=== PATIENT | female | born 1955 | race Two or more races ===

== ENCOUNTER → 2017-02-28 | Outpatient (CLI) | payer OTHER ==
[~2017-02-28] MED LIST: AZIT500T5 PO
--- NOTE | 2017-02-28 17:42 | RADRPT ---
PROCEDURE: XR pelvis and left hip CLINICAL INDICATION: Pain TECHNIQUE: AP pelvis as well as a AP and frog lateral views of the bilateral hips were performed. COMPARISON: None. FINDINGS: There is normal mineralization and alignment. No acute fracture or osseous lesion is identified. There is mild narrowing of the right hip joint space. There are moderate degenerative changes of the left hip joint including joint space narrowing and sm all osteophytes. The soft tissues are unremarkable. IMPRESSION: Degenerative changes of bilateral hip joints which are moderate on the left and mild on the right. RPTAT: EE Physician Celestina Date Time Electronically viewed and signed by Physician Celestina on 02/28/2017 14:51 /
== END | disposition home or self-care (01) ==
LOC: HKI 11:03
PROVIDERS: ATTEND Orthopaedic Surgery
DX: M25.552 Pain in left hip (principal); M16.12 Unilateral primary osteoarthritis, left hip
CPT/HCPCS: 73502; G0463

== ENCOUNTER 2017-07-13 06:01 | Inpatient (IN) | payer OTHER ==
[2017-07-12 12:47] VITALS: BMI 36.6
[2017-07-13] VITALS (19 sets, daily range): BP systolic 90–134; BP diastolic 54–93; PULSE 67–84; RESP 11–22; Ht 149.9 cm; Wt 81.9 kg
[~2017-07-13] VITALS: Ht 149.9 cm; Wt 81.9 kg
[~2017-07-13 06:01] MED LIST changes: +CEFAZOLIN 2 GM/50 ML (PMX) 50 ML IVPB SCH
[2017-07-13] MEDS ORDERED: CEFAZOLIN 2 GM/50 ML (PMX) 50 ML IVPB SCH (06:30)
[2017-07-13] MEDS ORDERED: MAXZ25 PO (06:56)
[2017-07-13] MEDS ORDERED: AMLO-145 PO (06:56)
[2017-07-13] MEDS ORDERED: CEFAZOLIN 1 GM INJ ONE (07:00)
--- NOTE | 2017-07-13 07:22 | HPN ---
Date/Time of Note Date/Time of Note DATE: 07/13/17 TIME: 07:22 Interval H&P Admission Note Pt. seen H&P reviewed: No system changes SANDRA GUTHRIE PA-C Jul 13, 2017 07:22
[2017-07-13] MEDS ORDERED: BACITRACIN 50000 UNITS INJ ONE (07:54)
[2017-07-13] MEDS ORDERED: TRANEXAMIC ACID 1,000 MG in DEXTROSE 5% 100 ML IV SCH (08:00)
[2017-07-13] MEDS ORDERED: POLYMYXIN B 500000 UNIT INJ ONE (08:02)
[2017-07-13] MEDS ORDERED: MIDAZOLAM 1 MG/ML 2 ML INJ ONE (08:40)
[2017-07-13] MEDS ORDERED: PROPOFOL 20 ML ONE (08:40)
[2017-07-13] MEDS ORDERED: LIDOCAINE 2% (SDV) 5 ML INJ ONE (08:40)
[2017-07-13] MEDS ORDERED: FENTAnyl 50 MCG/ML VIAL ONE (08:44)
[2017-07-13] MEDS ORDERED: PHENYLephrine 10 MG INJ ONE (08:56)
[2017-07-13] MEDS ORDERED: PHENYLephrine (100 MCG/ML) 5ML SYG ONE ×2 (08:57→09:59)
[2017-07-13] MEDS ORDERED: FAMOTIDINE 20 MG INJ ONE (09:22)
[2017-07-13] MEDS ORDERED: ONDANSETRON 4 MG INJ ONE (09:22)
[2017-07-13] MEDS: HIP PAIN COCKTAIL (CEFUROXIME) INJ SCH ×14 (09:54→14:24)
--- NOTE | 2017-07-13 11:27 | SIPON ---
Date/Time of Note Date/Time of Note DATE: 07/13/17 TIME: 11:26 Operative Report Preoperative Diagnosis Left Hip Osteoarthritis Postoperative Diagnosis Same Operation/Procedure Performed Left Total Hip Arthroplasty Surgeon MD Yandy under water assistant Elliott Castaneda Second assist: SANDRA GUTHRIE PA-C Anesthesia: spinal Estimated blood loss: 250 - 300 ml's Transfusion Required none Specimen Bone Grafts/Implants Depuy Size 12 stem, 32 STD head/neck, 50mm cup, 25mm screw Complications none DANICA VELAZQUEZ MD Jul 13, 2017 11:27
--- NOTE | 2017-07-13 11:47 | RADRPT ---
PROCEDURE: Intraoperative fluoroscopic examination, LT HIP REPLACEMENT CLINICAL INDICATION: LT HIP REPLACEMENT TECHNIQUE: Multiple fluoroscopic views of the left hip were obtained intraoperatively COMPARISON: 02/28/2017 FINDINGS: 6 fluoroscopic views demonstrate placement of a left hip arthroplasty. A total of 0.5 minutes of flu oroscopic time was utilized. IMPRESSION: Fluoroscopic guidance for left hip arthroplasty. RPTAT: DD .Earl Cordero MD, MD Date Time Electronically viewed and signed by .Earl Cordero MD, on 07/13/2017 11:46 .T/
--- NOTE | 2017-07-13 11:50 | PDOCDIS ---
Discharge Instructions DIAGNOSIS Discharge Diagnosis Status post left total hip arthroplasty via anterior route. CONDITION Patient Condition: Good HOME CARE INSTRUCTIONS: Diet Instructions: Regular ACTIVITY: Activity Restrictions: Slowly Increase Activity Rest between Activity Avoid heavy lifting No Sexual Activity Do not Drive Do not operate Machinery Do not operate Power Tool Avoid Heavy Housework Keep Limb Elevated (May use cold therapy over the surgical area.) Weight Bearing (Weight-bear as tolerated with front wheeled walker.) Bathing Restrictions: Shower (Keep surgical region clean and dry.) FOLLOW UP/APPOINTMENTS Follow-up Plan Follow-up at postoperative appointment provided to you at your preoperative visit. SANDRA GUTHRIE PA-C Jul 13, 2017 11:50
[2017-07-13] MEDS ORDERED: ONDANSETRON 4 MG INJ IV PRN (12:00)
[2017-07-13] MEDS ORDERED: DIPHENHYDRAMINE 50 MG INJ IM PRN (12:00)
[2017-07-13] MEDS ORDERED: DIPHENHYDRAMINE 50 MG INJ IV PRN (12:00)
[2017-07-13] MEDS ORDERED: ASPIRIN (EC) 325 MG TAB PO ONE (12:00)
[2017-07-13] MEDS ORDERED: BETHANECHOL 25 MG TAB PO PRN (12:00)
[2017-07-13] MEDS ORDERED: NA PHOSPHATE/BIPHOS 133 ML ENEMA PR PRN (12:00)
[2017-07-13] MEDS ORDERED: PROCHLORPERAZINE 10 MG INJ IV PRN (12:00)
[2017-07-13] MEDS ORDERED: LABETALOL HCL 20MG INJ IV PRN (12:00)
[2017-07-13] MEDS ORDERED: DEXTROSE 50% 50 ML SYRINGE IV PRN ×2 (12:00)
[2017-07-13] MEDS ORDERED: INSULIN ASPART [NOVOLOG] 3 ML PEN SC ONE (12:00)
[2017-07-13] MEDS ORDERED: MEPERIDINE 25 MG INJ IV PRN (12:00)
[2017-07-13] MEDS ORDERED: oxyCODONE 5 MG TAB PO PRN (12:00)
[2017-07-13] MEDS ORDERED: NALOXONE (0.4 MG/ML) INJ IV PRN (12:00)
[2017-07-13] MEDS ORDERED: BISACODYL 10 MG SUPP PR PRN (12:00)
[2017-07-13] MEDS ORDERED: NACL 0.9% 3 ML SYG IV SCH (12:00)
[2017-07-13] MEDS ORDERED: GLUCOSE GEL 15 GRAM TUBE BUCCAL PRN (12:00)
[2017-07-13] MEDS ORDERED: KETOROLAC 15 MG INJ IV PRN (12:00)
[2017-07-13] MEDS ORDERED: GLUCAGON 1 MG INJ IM PRN (12:00)
[2017-07-13] MEDS ORDERED: DOCUSATE SODIUM 100 MG CAP PO ONE (12:00)
[2017-07-13] MEDS ORDERED: ZOLPIDEM 5 MG TAB PO PRN (12:00)
[2017-07-13] MEDS ORDERED: SENNA/DOCUSATE NA (8.6MG/50MG) TAB PO PRN (12:00)
[2017-07-13] MEDS ORDERED: MAGNESIUM HYDROXIDE 30ML CUP PO PRN (12:00)
[2017-07-13] MEDS ORDERED: FENTAnyl 50 MCG/ML VIAL IV PRN (12:00)
[2017-07-13] MEDS ORDERED: GLUCOSE GEL 15 GRAM TUBE PO PRN ×2 (12:00)
[2017-07-13] MEDS ORDERED: hydrALAzine 20 MG INJ IV PRN (12:00)
[2017-07-13] MEDS ORDERED: HYDROmorphONE (0.2 MG/ML) 10ML SYG IV ONE (12:01)
[2017-07-13] MEDS: HYDROmorphONE (0.2 MG/ML) 10ML SYG IV PRN ×2 (12:16→12:30)
[2017-07-13] MEDS: ONDANSETRON 4 MG INJ IV SCH ×2 (12:31→18:00)
[2017-07-13] MEDS: CEFAZOLIN 1 GM/50 ML (PMX) 50 ML IVPB SCH ×2 (12:32→20:35)
--- NOTE | 2017-07-13 12:50 | RADRPT ---
PROCEDURE: Left hip x-ray CLINICAL INDICATION: Postoperative evaluation TECHNIQUE: Single AP portable left hip COMPARISON: 07/13/2017 and 02/28/2017 ACR images of the hips FINDINGS: The patient is status post left total hip replacement with intact hardware and gross anatomic alignm ent. No evidence for fractures or dislocations are present. Subcutaneous emphysematous changes are n oted in the soft tissues of the left hip compatible with postoperative changes. IMPRESSION: 1. Status post left total hip replacement with intact hardware. 2. Subcutaneous emphysematous changes in the left hip compatible with postoperative changes RPTAT: HDC .Nelda Fischer MD, MD Date Time Electronically viewed and signed by .Nelda Fischer MD, on 07/13/2017 12:50 .C/
--- NOTE | 2017-07-13 14:37 | CONS ---
Date/Time of Note Date/Time of Note DATE: 07/13/17 TIME: 14:32 Assessment/Plan Assessment/Plan Chief Complaint/Hosp Course Assessment and plan 1. Left hip osteoarthritis. Patient is status post left total hip arthroplasty. Continue postop care and analgesics. Physical therapy per surgeon. 2. Essential hypertension. Will start antihypertensives and adjust needed. Disposition and plan: Continue with analgesics. Physical therapy per surgeon. We will follow-up on a.m. labs with CHD, A1c, TSH. Discussed plan of care with Dr. Melo Consultation process time is greater than 30 minutes Problems: Consultation Date/Type/Reason Admit Date/Time Jul 13, 2017 at 06:01 Hx of Present Illness This is a 61-year-old female with past medical history of hypertension, arthritis, was brought to [facility] for elective surgery for left hip replacement. Patient had reportedly been having worsening left hip pain and difficulty with ambulation. As such she did come to [facility] and did received left hip arthroplasty. She did tolerate procedure well. Vital signs remained stable at present. She reports good pain control with analgesics at present. Family remains at bedside. We will evaluate her for the aformentiond issues. 12 point review of systems obtained and entirely negative except that mentioned in the history of present illness Past Medical History Medical/surgical history 1. Hypertension 2. Arthritis 3. Tonsillectomy 4. Appendectomy 5. 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, nl mental status, nl speech Results Results 24 hrs Laboratory Tests Test 07/13/17 06:50 07/13/17 12:13 Bedside Glucose 135 116 Medications Medications Current Medications Ropivacaine 60 ml/ Morphine Sulfate 4 mg/Clonidine 100 mcg/ Epinephrine 0.3 mg/ Ketorolac Tromethamine 30 mg/Cefuroxime Sodium 750 mg/ Sodium Chloride 50 ml INTRA-OP INJ Last administered on 07/13/17 09:54; Admin Dose 40 ML; Start 07/13/17 at 07:00; Stop 07/13/17 at 23:00 Cefazolin Sodium/ Dextrose 50 ml @ 100 mls/hr OC IVPB ; Start 07/13/17 at 06:30 ; Stop 07/13/17 at 23:00 Tranexamic Acid 1000 mg/Dextrose 110 ml @ 220 mls/hr NOW IV ; Start 07/13/17 at 08:00; Stop 07/14/17 at 23:00 Sodium Chloride (NS) 1,000 ml @ 80 mls/hr [id number] IV ; Start 07/13/17 at 11:50 Oxycodone HCl (Roxicodone) 20 mg Q3H PRN PO PAIN LEVEL 8-10; Start 07/13/17 at 12:00 Oxycodone HCl (Roxicodone) 10 mg Q3H PRN PO PAIN LEVEL 4-7; Start 07/13/17 at 12:00 Oxycodone HCl (Roxicodone) 5 mg Q3H PRN PO PAIN LEVEL 1-3; Start 07/13/17 at 12 :00 Zolpidem Tartrate (Ambien) 5 mg HS PRN PO INSOMNIA; Start 07/13/17 at 12:00 Ondansetron HCl 4 mg 4 mg Q6H IV Last administered on 07/13/17 12:31; Admin Dose 4 MG; Start 07/13/17 at 12:00; Stop 07/14/17 at 06:01 Cefazolin Sodium (Ancef 1 Gm/50 ml (Pmx)) 50 ml @ 100 mls/hr Q8H IVPB Last administered on 07/13/17 12:32; Admin Dose 100 MLS/HR; Start 07/13/17 at 12:00 ; Stop 07/14/17 at 04:29 Aspirin (Ecotrin) 325 mg BID PO ; Start 07/14/17 at 09:00 Celecoxib (Celebrex) 100 mg BID PO ; Start 07/14/17 at 09:00 Pantoprazole (Protonix Tab) 40 mg DAILY@06 PO ; Start 07/14/17 at 06:00 Docusate Sodium/ Ferrous Fumarate (Diane-Sequels) 1 tab BID PO ; Start 07/14/17 at 09:00 Docusate Sodium (Colace) 200 mg BID PO ; Start 07/14/17 at 09:00; Stop 07/16/17 at 21:01 Simethicone (Mylicon) 80 mg TID PRN PO DISTENSION/GAS/BLOATING; Start 07/13/17 at 12:00 Senna/Docusate Sodium (Senokot-S) 2 tab BID PRN PO CONSTIPATION; Start at 12:00 Magnesium Hydroxide (Milk Of Mag) 30 ml HS PRN PO CONSTIPATION; Start 07/13/17 at 12:00 Bisacodyl (Dulcolax Supp) 10 mg DAILY PRN [place] CONSTIPATION; Start 07/13/17 at 12 :00 Sodium Biphosphate/ Sodium Phosphate (Fleet Enema) 133 ml DAILY PRN [place] CONSTIPATION; Start 07/13/17 at 12:00 Diphenhydramine HCl (Benadryl) 25 mg Q4H PRN IM ITCHING OR RASH; Start at 12:00 Ketorolac Tromethamine (Toradol) 15 mg Q4 PRN IV PAIN; Start 07/13/17 at 12:00 ; Stop 07/17/17 at 11:59 Naloxone HCl (Narcan) 0.2 mg Q2M PRN IV DECREASED REPIRATORY RATE; Start at 12:00 Miscellaneous Information 1 ea NOTE XX ; Start 07/13/17 at 12:00; Stop 07/13/17 at 17:00 Glucose (Glutose) 15 gm Q15M PRN PO DECREASED GLUCOSE; Start 07/13/17 at 12:00 ; Stop 07/13/17 at 17:00 Glucose (Glutose) 22.5 gm Q15M PRN PO DECREASED GLUCOSE; Start 07/13/17 at 12: 00; Stop 07/13/17 at 17:00 Dextrose (D50w Syringe) 25 ml Q15M PRN IV DECREASED GLUCOSE; Start 07/13/17 at 12:00; Stop 07/13/17 at 17:00 Dextrose (D50w Syringe) 50 ml Q15M PRN IV DECREASED GLUCOSE; Start 07/13/17 at 12:00; Stop 07/13/17 at 17:00 Glucagon (Glucagen) 1 mg Q15M PRN IM DECREASED GLUCOSE; Start 07/13/17 at 12:00 ; Stop 07/13/17 at 17:00 Glucose (Glutose) 15 gm Q15M PRN BUCCAL DECREASED GLUCOSE; Start 07/13/17 at 12 :00; Stop 07/13/17 at 17:00 Amlodipine Besylate (Norvasc) 5 mg DAILY PO ; Start 07/14/17 at 09:00 SCHUYLER RODRIGUEZ Jul 13, 2017 14:37
[2017-07-13] MEDS: SOD CHLORIDE 0.9% 1,000 ML IV SCH (14:38)
[2017-07-13] MEDS: oxyCODONE 5 MG TAB PO PRN ×2 (14:39→22:54)
[2017-07-14 00:20] VITALS: BP 118/72; RESP 20
[2017-07-14] MEDS: SOD CHLORIDE 0.9% 1,000 ML IV SCH ×4 (00:20→21:08)
[2017-07-14] MEDS: oxyCODONE 5 MG TAB PO PRN ×3 (00:25→12:45)
[2017-07-14] MEDS: CEFAZOLIN 1 GM/50 ML (PMX) 50 ML IVPB SCH (03:54)
[2017-07-14 04:45] VITALS: BP 105/55; PULSE 91; RESP 18
[2017-07-14] MEDS: ONDANSETRON 4 MG INJ IV SCH ×2 (05:06)
[2017-07-14] MEDS: PANTOPRAZOLE (EC) 40 MG TAB PO SCH (05:07)
[2017-07-14 05:16] LABS: BASOPHILS % 0.3 % (0.0-2.0); EOSINOPHILS % 0.2 % (0.0-7.0); HEMATOCRIT 29.9 % (37.0-47.0); HEMOGLOBIN 10.1 g/dl (12.0-16.0); LYMPHOCYTES # 2.5 10^3/ul (0.8-2.9); LYMPHOCYTES % 23.4 % (15.0-51.0); MEAN CORPUSCULAR HEMOGLOBIN 29.4 pg (29.0-33.0); MEAN CORPUSCULAR HGB CONC 33.8 g/dl (32.0-37.0); MEAN CORPUSCULAR VOLUME 87.2 fl (82.0-101.0); MEAN PLATELET VOLUME 10.2 fl (7.4-10.4); MONOCYTE # 1.3 10^3/ul (0.3-0.9); MONOCYTES % 12.7 % (0.0-11.0); NEUTROPHIL # 6.6 10^3/ul (1.6-7.5); PLATELET COUNT 188 10^3/UL (140-415); RED BLOOD COUNT 3.43 10^6/ul (4.20-5.40); RED CELL DISTRIBUTION WIDTH 12.9 % (11.5-14.5); WHITE BLOOD COUNT 10.5 10^3/ul (4.8-10.8)
[2017-07-14 05:33] LABS: CALCIUM 8.3 mg/dl (8.4-10.2); CREATININE 0.68 mg/dl (0.44-1.00); POTASSIUM 3.4 mmol/L (3.5-5.1)
[2017-07-14 05:46] LABS: CHOL/HDL RATIO 2.9 RATIO
[2017-07-14 06:32] LABS: T3 UPTAKE 38.8 % (23.5-40.5)
[2017-07-14 07:01] LABS: ADD UMIC YES; UR ASCORBIC ACID NEGATIVE (NEGATIVE); UR BACTERIA FEW /HPF (NONE SEEN); UR BILIRUBIN (Dip) NEGATIVE (NEGATIVE); UR BLOOD (Dip) 1+ mg/dL (NEGATIVE); UR CLARITY CLEAR (CLEAR); UR COLOR YELLOW (YELLOW); UR GLUCOSE (Dip) NEGATIVE (NEGATIVE); UR KETONES (Dip) NEGATIVE (NEGATIVE); UR LEUKOCYTE ESTERASE (Dip) TRACE Leu/ul (NEGATIVE); UR MUCUS FEW /HPF (NONE SEEN); UR NITRITE (Dip) NEGATIVE (NEGATIVE); UR RBC 7 /HPF (0-5); UR TOTAL PROTEIN (Dip) NEGATIVE (NEGATIVE); UR UROBILINOGEN (Dip) NEGATIVE (NEGATIVE)
[2017-07-14 08:03] VITALS: BP 112/63; RESP 20
--- NOTE | 2017-07-14 08:24 | PN ---
Date/Time of Note Date/Time of Note DATE: 07/14/17 TIME: 08:23 Assessment/Plan VTE Prophylaxis VTE Prophylaxis Intervention: ambulation, SCD's, other (Aspirin 325 mg) Lines/Catheters IV Catheter Type (from Nrsg): Peripheral IV Coombs in Place (from Nrsg): Yes Assessment/Plan Assessment/Plan -Pain Meds as needed -ASA for DVT Prophylaxis x 6 weeks outpatient discussed. -Continue monitoring as outpatient on discharge -Follow-up at scheduled postop outpatient appointment or sooner if there is any issue. -Hip precautions discussed -Patient Stable -Discharge to Home with home health Subjective 24 Hr Interval Summary 61-year-old female postop day 1 status post left total hip arthroplasty via anterior route. Patient experienced moderate to severe pain overnight. Currently experiencing moderate pain. Denies any chest pain/tightness, shortness of breath or calf pain. Patient did have physical therapy but only able to stand and walk to the sink and back. Currently lying in bed comfortable. Exam/Review of Systems Vital Signs Vitals Vital Signs Date Time Temp Pulse Resp B/P Pulse Ox O2 Delivery O2 Flow Rate FiO2 07/14/17 08:03 98.1 88 20 112/63 97 07/14/17 04:45 Nasal Cannula 07/13/17 20:05 2.0 Intake and Output 07/13/17 07/13/17 07/14/17 15:00 23:00 07:00 Intake Total 2450 ml 570 ml 1230 ml Output Total 200 ml 300 ml 850 ml Balance 2250 ml 270 ml 380 ml Exam Free Text/Dictation -No complications with dressing intact. -Thigh soft -5/5 Quadriceps, Tibialis Anterior, EHL Gastrocnemius/Soleus and Peroneals -Normal Sensation -Palpable DP/PT, Capillary Refill <2 secs -No Distal Edema -Negative Gilbert Sign/No calf pain -Toes Freely Movable Constitutional: alert, oriented, well developed Results Result Diagram: 07/14/17 0438 07/14/17 0438 SANDRA GUTHRIE PA-C Jul 14, 2017 08:24
[2017-07-14] MEDS: DOCUSATE SODIUM 100 MG CAP PO SCH ×2 (08:46→20:35)
[2017-07-14] MEDS: AMLODIPINE 5 MG TAB PO SCH (08:47)
[2017-07-14] MEDS: ASPIRIN (EC) 325 MG TAB PO SCH ×2 (08:47→20:35)
[2017-07-14] MEDS: FERROUS FUMARATE (SR) TAB PO SCH ×2 (08:47→20:35)
[2017-07-14] MEDS: CELECOXIB 200 MG CAP PO SCH ×2 (08:47→20:35)
[2017-07-14] MEDS ORDERED: OMEG-135 PO (10:59)
--- NOTE | 2017-07-14 10:59 | PN ---
Date/Time of Note Date/Time of Note DATE: 07/14/17 TIME: 10:57 Assessment/Plan VTE Prophylaxis VTE Prophylaxis Intervention: other (asa) Lines/Catheters IV [facility]from [facility] Peripheral IV Urinary Cath still in place: Yes Assessment/Plan Chief Complaint/Hosp Course Assessment and plan 1. Left hip osteoarthritis. Patient is status post left total hip arthroplasty. Continue postop care and analgesics. continue PT. 2. Essential hypertension. Will start antihypertensives and adjust needed. Disposition and plan: Continue with analgesics. appears improving. continue PT. d/c planning. fish oil added for low HDL Discussed plan of care with Dr. Melo Consultation process time is greater than 30 minutes Problems: Subjective 24 Hr Interval Summary Free Text/Dictation with some left hip discomfort, but better Exam/Review of Systems Vital Signs Vitals Vital Signs Date Time Temp Pulse Resp B/P Pulse Ox O2 Delivery O2 Flow Rate FiO2 07/14/17 08:03 98.1 88 20 112/63 97 07/14/17 04:45 Nasal Cannula 07/13/17 20:05 2.0 Intake and Output 07/13/17 07/13/17 07/14/17 15:00 23:00 07:00 Intake Total 2450 ml 570 ml 1230 ml Output Total 200 ml 300 ml 850 ml Balance 2250 ml 270 ml 380 ml Exam Constitutional: alert, oriented Psych: nl mood/affect Head: normocephalic Neck: non-tender, supple Respiratory: clear to auscultation, normal air movement Cardiovascular: regular rate and rhythm Gastrointestinal: non-tender, soft Musculoskeletal: dressing left hip, cdi 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, nl mental status, nl speech Results Result Diagram: 07/14/17 0438 07/14/17 0438 Results 24 hrs Laboratory Tests Test 07/13/17 12:13 07/13/17 15:17 07/14/17 04:38 07/14/17 05:00 Bedside Glucose 116 Hemoglobin A1c 6.3 H White Blood Count 10.5 # Red Blood Count 3.43 #L Hemoglobin 10.1 #L Hematocrit 29.9 #L Mean Corpuscular Volume 87.2 Mean Corpuscular Hemoglobin 29.4 Mean Corpuscular Hemoglobin Concent 33.8 Red Cell Distribution Width 12.9 Platelet Count 188 Mean Platelet Volume 10.2 # Neutrophils % 63.0 Lymphocytes % 23.4 Monocytes % 12.7 H Eosinophils % 0.2 Basophils % 0.3 Nucleated Red Blood Cells % 0.0 Neutrophils # 6.6 Lymphocytes # 2.5 Monocytes # 1.3 H Eosinophils # 0.0 Basophils # 0.0 Nucleated Red Blood Cells # 0.0 Sodium Level 136 Potassium Level 3.4 L Chloride Level 100 Carbon Dioxide Level 30 Anion Gap 9 Blood Urea Nitrogen 15 Creatinine 0.68 Glucose Level 140 Calcium Level 8.3 L Triglycerides Level 77 Cholesterol Level 97 L LDL Cholesterol, Calculated 49 HDL Cholesterol 33 L Cholesterol/HDL Ratio 2.9 Free Thyroxine Index 3.38 Thyroxine (T4) 8.7 Triiodothyronine (T3) Uptake 38.8 Urine Color YELLOW Urine Clarity CLEAR Urine pH 5.0 Urine Specific [place] 1.020 Urine Ketones NEGATIVE Urine Nitrite NEGATIVE Urine Bilirubin NEGATIVE Urine Urobilinogen NEGATIVE Urine Leukocyte Esterase TRACE A Urine Microscopic RBC 7 H Urine Microscopic WBC 19 H Urine Bacteria FEW A Urine Mucus FEW A Urine Hemoglobin 1+ H Urine Glucose NEGATIVE Urine Total Protein NEGATIVE Medications Medications Current Medications Sodium Chloride (NS) 1,000 ml @ 80 mls/hr [id number] IV Last administered on 07/14 03:55; Admin Dose 80 MLS/HR; Start 07/13/17 at 11:50 Oxycodone HCl (Roxicodone) 20 mg Q3H PRN PO PAIN LEVEL 8-10 Last administered on 07/14/17 07:59; Admin Dose 20 MG; Start 07/13/17 at 12:00 Oxycodone HCl (Roxicodone) 10 mg Q3H PRN PO PAIN LEVEL 4-7 Last administered on 07/14/17 00:25; Admin Dose 10 MG; Start 07/13/17 at 12:00 Oxycodone HCl (Roxicodone) 5 mg Q3H PRN PO PAIN LEVEL 1-3; Start 07/13/17 at 12 :00 Zolpidem Tartrate (Ambien) 5 mg HS PRN PO INSOMNIA; Start 07/13/17 at 12:00 Aspirin (Ecotrin) 325 mg BID PO Last administered on 07/14/17 08:47; Admin Dose 325 MG; Start 07/14/17 at 09:00 Celecoxib (Celebrex) 100 mg BID PO Last administered on 07/14/17 08:47; Admin Dose 100 MG; Start 07/14/17 at 09:00 Pantoprazole (Protonix Tab) 40 mg DAILY@06 PO Last administered on 07/14/17 05 :07; Admin Dose 40 MG; Start 07/14/17 at 06:00 Docusate Sodium/ Ferrous Fumarate (Diane-Sequels) 1 tab BID PO Last administered on 07/14/17 08:47; Admin Dose 1 TAB; Start 07/14/17 at 09:00 Docusate Sodium (Colace) 200 mg BID PO Last administered on 07/14/17 08:46; Admin Dose 200 MG; Start 07/14/17 at 09:00; Stop 07/16/17 at 21:01 Simethicone (Mylicon) 80 mg TID PRN PO DISTENSION/GAS/BLOATING; Start 07/13/17 at 12:00 Senna/Docusate Sodium (Senokot-S) 2 tab BID PRN PO CONSTIPATION; Start at 12:00 Magnesium Hydroxide (Milk Of Mag) 30 ml HS PRN PO CONSTIPATION; Start 07/13/17 at 12:00 Bisacodyl (Dulcolax Supp) 10 mg DAILY PRN [place] CONSTIPATION; Start 07/13/17 at 12 :00 Sodium Biphosphate/ Sodium Phosphate (Fleet Enema) 133 ml DAILY PRN [place] CONSTIPATION; Start 07/13/17 at 12:00 Diphenhydramine HCl (Benadryl) 25 mg Q4H PRN IM ITCHING OR RASH; Start at 12:00 Ketorolac Tromethamine (Toradol) 15 mg Q4 PRN IV PAIN; Start 07/13/17 at 12:00 ; Stop 07/17/17 at 11:59 Naloxone HCl (Narcan) 0.2 mg Q2M PRN IV DECREASED REPIRATORY RATE; Start at 12:00 Amlodipine Besylate (Norvasc) 5 mg DAILY PO Last administered on 07/14/17 08: 47; Admin Dose 5 MG; Start 07/14/17 at 09:00 SCHUYLER RODRIGUEZ Jul 14, 2017 10:59
--- NOTE | 2017-07-14 14:00 | OPR ---
Date/Time of Note Date/Time of Note DATE: 07/14/17 TIME: 13:55 Operative Report Procedure Date: Jul 13, 2017 Preoperative Diagnosis Left Hip Osteoarthritis Postoperative Diagnosis Left Hip Osteoarthritis Operation/Procedure Performed 1. Left total hip arthroplasty. CPT code 19691. 2. Computer assisted navigational procedure, CPT code 51434. 3. Interpretation of AP Pelvis x-ray. 4. Interpretation of Lef hip, 2 views. Surgeon Danica Velazquez MD Cell Tester Elliott Castaneda Second Cell Tester: SANDRA GUTHRIE PA-C Anesthesia Type: spinal Anesthesiologist: KAY TODD MD Estimated Blood Loss: 150 - 200 ml's Transfusion none Specimen Bone Grafts/Implants Depuy [place] Size 12 Stem, Size 50mm cup, 25mm screw, 32/STD ceramic head Complications none Pt Condition Post Procedure: stable Disposition: PACU Indications This is a 61-year-old female with endstage osteoarthritis of the left hip who had failed nonoperative management. Risks, benefits, alternatives of surgical intervention were discussed with the patient and informed consent was obtained. The risks of surgery include but are not limited to infection, deep venous thrombosis, pulmonary embolism, leg length discrepancy, fracture, damage to neurovascular structures requiring repair, loosening of the prosthesis, wear of prosthesis, need for revision surgery, heart attack, stroke, need for blood transfusion, risks associated with anesthesia and even . Procedure Description The patient was met in the preoperative suite and the correct operative site was confirmed and marked. Patient was then brought into operating room. After induction of general anesthesia, she was placed in the supine position on the table. The lef lower extremity was prepped and draped in the usual sterile fashion. Before starting, a timeout was taken to identify the correct operative site and confirm the preoperative antibiotics consisting of 1 gram of IV Ancef, along with 1 gram of tranexamic acid were administered. At this point, an 8 cm incision was made approximately 2 cm lateral and 1 cm distal to the ASIS. The incision was carried down to the fascia. The fascia was then incised. Then, 2 Allis clamps were placed. The interval was then bluntly developed and the tensor fascia phan was then retracted laterally. The lateral circumflex vessels were identified and coagulated. The anterior capsule was then visualized and a capsulotomy was performed. At this point, markings were made for the napkin ring osteotomy of the femoral neck. Using the saw the initial osteotomy was then made and completed with the use of an osteotome. A Constance was then used to remove the napkin ring and a corkscrew was then placed in the femoral head and the head was then removed. The head was sized to 45 mm. Sequential reaming was begun with a 45 mm reamer, going up to a 49 mm reamer. A trial 50 mm cup was then impacted and the radlink was then used to determine the appropriate anteversion and abduction of the cup. The cup was noted to be in approximately 45 degrees of abduction, and 20 degrees of antevesion and the trial was then removed. The appropriate size cup was then placed and again the radlink was used to determine the inclination and anteversion in the same positions. At this point, a 25 mm screw was then placed in the posterior superior quadrant. The 32 mm liner was then impacted into place and the final acetabular x-rays were taken which again demonstrated the cup to be in appropriate abduction and anteversion. At this point, the femoral lift was then used and the left leg was then placed in external rotation, 8 extension, and adduction. Retractors were placed and the femoral releases were performed using a box osteotome followed by a canal finder. Sequential broaching was begun with a 0 broach going up to a size 12 broach. The trial 12 mm standard offset stem along with a 32 mm STD trial head and neck were placed. The hip was then reduced and taken through range of motion , noted to be stable in extension and external rotation of up to 110 degrees. AP x-rays of the pelvis and left hip, 2 view x-rays were taken. The x-rays demonstrated the prosthesis to be in the correct position with equal leg lengths. The trial components were then removed. The appropriate sized components were then placed. The hip was again reduced with unchanged stability and equal leg lengths and no fractures were seen. The hip was again taken through range of motion and noted to be stable to extension and external rotation. The wound was then thoroughly irrigated. The capsule and the fascia were closed using #1 Vicryl. The subcutaneous tissue was closed using 0 Vicryl and the skin with 4-0 Monocryl in subcuticular fashion and Steri-Strips were applied. There were no complications. Patient was awakened and taken to postoperative care unit in stable condition. Prior to transfer. she was noted to have equal leg lengths and a palpable dorsalis pedis pulse. POSTOPERATIVE CARE: Patient will be weightbearing as tolerated. She will work with physical therapy. She will receive two additional doses of IV Ancef along with aspirin 325 mg p.o. b.i.d. for 6 weeks. She will have SCDs while in the hospital. Upon discharge, she will follow up in my office within 2 weeks postoperatively. She will receive multimodal pain management. DANICA VELAZQUEZ MD Jul 14, 2017 14:00
[2017-07-14 15:27] VITALS: BP 97/55; RESP 20
[2017-07-14 20:21] VITALS: BP 111/59; RESP 20
[2017-07-15 03:18] VITALS: BP 118/72; RESP 18
[2017-07-15 06:20] LABS: ABNORMAL IP MESSAGE 1; BASOPHILS % 0.3 % (0.0-2.0); EOSINOPHILS # 0.1 10^3/ul (0.0-0.5); EOSINOPHILS % 0.6 % (0.0-7.0); HEMATOCRIT 27.1 % (37.0-47.0); HEMOGLOBIN 9.2 g/dl (12.0-16.0); LYMPHOCYTES # 2.2 10^3/ul (0.8-2.9); LYMPHOCYTES % 20.2 % (15.0-51.0); MEAN CORPUSCULAR HEMOGLOBIN 30.1 pg (29.0-33.0); MEAN CORPUSCULAR HGB CONC 33.9 g/dl (32.0-37.0); MEAN CORPUSCULAR VOLUME 88.6 fl (82.0-101.0); MEAN PLATELET VOLUME 12.4 fl (7.4-10.4); MONOCYTE # 1.6 10^3/ul (0.3-0.9); MONOCYTES % 15.1 % (0.0-11.0); NEUTROPHIL # 6.9 10^3/ul (1.6-7.5); NEUTROPHILS % 63.4 % (39.0-77.0); PLATELET COUNT 71 10^3/UL (140-415); RED BLOOD COUNT 3.06 10^6/ul (4.20-5.40); RED CELL DISTRIBUTION WIDTH 12.9 % (11.5-14.5); WHITE BLOOD COUNT 10.8 10^3/ul (4.8-10.8)
[2017-07-15] MEDS: PANTOPRAZOLE (EC) 40 MG TAB PO SCH (06:20)
[2017-07-15 06:46] LABS: CALCIUM 8.5 mg/dl (8.4-10.2); CREATININE 0.58 mg/dl (0.44-1.00); POTASSIUM 3.6 mmol/L (3.5-5.1)
[2017-07-15 06:59] LABS: POSITIVE DIFF @See below
[2017-07-15 07:59] VITALS: BP 91/54; PULSE 82; RESP 16
--- NOTE | 2017-07-15 08:08 | PN ---
Date/Time of Note Date/Time of Note DATE: 07/15/17 TIME: 08:07 Assessment/Plan VTE Prophylaxis VTE Prophylaxis Intervention: ambulation, SCD's, other (Aspirin 325 mg) Lines/Catheters IV Catheter Type (from Nrsg): Saline Lock Coombs in Place (from Nrsg): No Assessment/Plan Assessment/Plan -Pain Meds as needed -ASA for DVT Prophylaxis x 6 weeks outpatient discussed. -Continue monitoring as outpatient on discharge -Follow-up at scheduled postop outpatient appointment or sooner if there is any issue. -Hip precautions discussed -Patient Stable -Discharge to Home with home health Subjective 24 Hr Interval Summary 61-year-old female postop day 2 status post left total hip arthroplasty via anterior route. Patient underwent physical therapy yesterday where she was weightbearing for a little bit longer compared to her first postoperative day. Patient did experience significant nausea and had episodes of vomiting. Since then, patient states that she is feeling much better. Pain is well controlled. Denies any chest pain/tightness, shortness of breath or calf pain. Exam/Review of Systems Vital Signs Vitals Vital Signs Date Time Temp Pulse Resp B/P Pulse Ox O2 Delivery O2 Flow Rate FiO2 07/15/17 07:59 98.0 82 16 91/54 96 Room Air 07/14/17 07:45 2.0 Intake and Output 07/14/17 07/14/17 07/15/17 15:00 23:00 07:00 Intake Total 1700 ml 1300 ml Output Total 650 ml 1250 ml Balance 1050 ml 50 ml Exam Free Text/Dictation -No complications with dressing intact. -Thigh soft -5/5 Quadriceps, Tibialis Anterior, EHL Gastrocnemius/Soleus and Peroneals -Normal Sensation -Palpable DP/PT, Capillary Refill <2 secs -No Distal Edema -Negative Gilbert Sign/No calf pain -Toes Freely Movable Constitutional: alert, oriented, well developed Results Result Diagram: 07/15/17 0445 07/15/17 0445 SANDRA GUTHRIE PA-C Jul 15, 2017 08:08
[2017-07-15] MEDS: AMLODIPINE 5 MG TAB PO SCH (08:46)
[2017-07-15] MEDS: FERROUS FUMARATE (SR) TAB PO SCH ×2 (08:47→21:37)
[2017-07-15] MEDS: ASPIRIN (EC) 325 MG TAB PO SCH ×2 (08:47→21:37)
[2017-07-15] MEDS: DOCUSATE SODIUM 100 MG CAP PO SCH ×2 (08:47→21:36)
[2017-07-15] MEDS: CELECOXIB 100 MG CAP PO SCH ×2 (08:47→21:37)
[2017-07-15] MEDS: oxyCODONE 5 MG TAB PO PRN (12:09)
[2017-07-15] MEDS: SOD CHLORIDE 0.9% 1,000 ML IV SCH ×2 (13:50→23:29)
--- NOTE | 2017-07-15 14:22 | PN ---
Date/Time of Note Date/Time of Note DATE: 07/15/17 TIME: 14:22 Assessment/Plan VTE Prophylaxis VTE Prophylaxis Intervention: SCD's Lines/Catheters IV Catheter Type (from [facility]): Saline Lock Urinary Cath still in place: No Assessment/Plan Chief Complaint/Hosp Course Subjective Patient has no acute complaints Objective Physical exam General: Patient is laying in bed and answers questions appropriately Mentation: Patient is alert and oriented 4, Head: Normocephalic atraumatic Eyes: EOMI, pupils reactive to light Neck: Supple, nontender, midline Respiratory: Clear to auscultation bilaterally Cardiovascular: regular rate, no obvious murmurs Gastrointestinal: non-tender to palpation, bowel sounds heard. Neurological: Moves all extremities spontaneously Skin: No new skin lesions Assessment and plan Left hip osteoarthritis -Status post left total hip arthroplasty, -Orthopedic surgery recommendations appreciated Hypertension -Continue medications as needed Anemia -Likely secondary to surgery -Monitor for now, patient urged to get repeat hemoglobin testing and the outpatient setting Problems: Exam/Review of Systems Vital Signs Vitals Vital Signs Date Time Temp Pulse Resp B/P Pulse Ox O2 Delivery O2 Flow Rate FiO2 07/15/17 07:59 98.0 82 16 91/54 96 Room Air 07/14/17 07:45 2.0 Intake and Output 07/14/17 07/14/17 07/15/17 14:59 22:59 06:59 Intake Total 1700 ml 1300 ml Output Total 650 ml 1250 ml Balance 1050 ml 50 ml Results Result Diagram: 07/15/17 0445 07/15/17 0445 Results 24 hrs Laboratory Tests Test 07/15/17 04:45 White Blood Count 10.8 Red Blood Count 3.06 L Hemoglobin 9.2 L Hematocrit 27.1 L Mean Corpuscular Volume 88.6 Mean Corpuscular Hemoglobin 30.1 Mean Corpuscular Hemoglobin Concent 33.9 Red Cell Distribution Width 12.9 Platelet Count 71 #L Mean Platelet Volume 12.4 #H Neutrophils % 63.4 Lymphocytes % 20.2 Monocytes % 15.1 H Eosinophils % 0.6 Basophils % 0.3 Nucleated Red Blood Cells % 0.0 Neutrophils # 6.9 Lymphocytes # 2.2 Monocytes # 1.6 H Eosinophils # 0.1 Basophils # 0.0 Nucleated Red Blood Cells # 0.0 Sodium Level 136 Potassium Level 3.6 Chloride Level 101 Carbon Dioxide Level 30 Anion Gap 9 Blood Urea Nitrogen 8 Creatinine 0.58 Glucose Level 133 Calcium Level 8.5 Medications Medications Current Medications Sodium Chloride (NS) 1,000 ml @ 80 mls/hr [id number] IV Last administered on 07/14 03:55; Admin Dose 80 MLS/HR; Start 07/13/17 at 11:50 Oxycodone HCl (Roxicodone) 20 mg Q3H PRN PO PAIN LEVEL 8-10 Last administered on 07/14/17 12:45; Admin Dose 20 MG; Start 07/13/17 at 12:00 Oxycodone HCl (Roxicodone) 10 mg Q3H PRN PO PAIN LEVEL 4-7 Last administered on 07/15/17 12:09; Admin Dose 10 MG; Start 07/13/17 at 12:00 Oxycodone HCl (Roxicodone) 5 mg Q3H PRN PO PAIN LEVEL 1-3; Start 07/13/17 at 12 :00 Zolpidem Tartrate (Ambien) 5 mg HS PRN PO INSOMNIA; Start 07/13/17 at 12:00 Aspirin (Ecotrin) 325 mg BID PO Last administered on 07/15/17 08:47; Admin Dose 325 MG; Start 07/14/17 at 09:00 Pantoprazole (Protonix Tab) 40 mg DAILY@06 PO Last administered on 07/15/17 06 :20; Admin Dose 40 MG; Start 07/14/17 at 06:00 Docusate Sodium/ Ferrous Fumarate (Diane-Sequels) 1 tab BID PO Last administered on 07/15/17 08:47; Admin Dose 1 TAB; Start 07/14/17 at 09:00 Docusate Sodium (Colace) 200 mg BID PO Last administered on 07/15/17 08:47; Admin Dose 200 MG; Start 07/14/17 at 09:00; Stop 07/16/17 at 21:01 Simethicone (Mylicon) 80 mg TID PRN PO DISTENSION/GAS/BLOATING; Start 07/13/17 at 12:00 Senna/Docusate Sodium (Senokot-S) 2 tab BID PRN PO CONSTIPATION; Start at 12:00 Magnesium Hydroxide (Milk Of Mag) 30 ml HS PRN PO CONSTIPATION; Start 07/13/17 at 12:00 Bisacodyl (Dulcolax Supp) [address] CONSTIPATION; Start 07/13/17 at 12 :00 Sodium Biphosphate/ Sodium Phosphate (Fleet Enema) [address] CONSTIPATION; Start 07/13/17 at 12:00 Diphenhydramine HCl (Benadryl) 25 mg Q4H PRN IM ITCHING OR RASH; Start at 12:00 Ketorolac Tromethamine (Toradol) 15 mg Q4 PRN IV PAIN; Start 07/13/17 at 12:00 ; Stop 07/17/17 at 11:59 Naloxone HCl (Narcan) 0.2 mg Q2M PRN IV DECREASED REPIRATORY RATE; Start at 12:00 Amlodipine Besylate (Norvasc) 5 mg DAILY PO Last administered on 07/14/17 08: 47; Admin Dose 5 MG; Start 07/14/17 at 09:00 Celecoxib (Celebrex) 100 mg BID PO Last administered on 07/15/17 08:47; Admin Dose 100 MG; Start 07/15/17 at 09:00 BONIFACIO TURNER Jul 15, 2017 14:22
[2017-07-15 21:14] VITALS: BP 105/59; RESP 20
[2017-07-16 03:30] VITALS: BP 106/77; RESP 18
[2017-07-16] MEDS: PANTOPRAZOLE (EC) 40 MG TAB PO SCH (05:20)
[2017-07-16 05:47] LABS: BASOPHILS % 0.3 % (0.0-2.0); EOSINOPHILS # 0.1 10^3/ul (0.0-0.5); HEMATOCRIT 28.7 % (37.0-47.0); HEMOGLOBIN 9.7 g/dl (12.0-16.0); LYMPHOCYTES # 2.4 10^3/ul (0.8-2.9); LYMPHOCYTES % 24.6 % (15.0-51.0); MEAN CORPUSCULAR HEMOGLOBIN 29.5 pg (29.0-33.0); MEAN CORPUSCULAR HGB CONC 33.8 g/dl (32.0-37.0); MEAN CORPUSCULAR VOLUME 87.2 fl (82.0-101.0); MEAN PLATELET VOLUME 10.7 fl (7.4-10.4); MONOCYTE # 1.1 10^3/ul (0.3-0.9); MONOCYTES % 11.3 % (0.0-11.0); NEUTROPHILS % 62.3 % (39.0-77.0); PLATELET COUNT 191 10^3/UL (140-415); RED BLOOD COUNT 3.29 10^6/ul (4.20-5.40); WHITE BLOOD COUNT 9.6 10^3/ul (4.8-10.8)
[2017-07-16 06:14] LABS: CREATININE 0.58 mg/dl (0.44-1.00); POTASSIUM 3.2 mmol/L (3.5-5.1)
[2017-07-16 07:50] VITALS: BP 110/65; RESP 18
--- NOTE | 2017-07-16 07:52 | PN ---
Date/Time of Note Date/Time of Note DATE: 07/16/17 TIME: 07:50 Assessment/Plan VTE Prophylaxis VTE Prophylaxis Intervention: ambulation, SCD's, other (Aspirin 325 mg) Lines/Catheters IV Catheter Type (from Nrsg): Saline Lock Coombs in Place (from Nrsg): No Assessment/Plan Assessment/Plan -Pain Meds as needed -ASA for DVT Prophylaxis x 6 weeks outpatient discussed. -Continue monitoring as outpatient on discharge -Follow-up at scheduled postop outpatient appointment or sooner if there is any issue. -Hip precautions discussed -Patient Stable -Discharge to ARU Subjective 24 Hr Interval Summary 61-year-old female postop day 3 status post left total hip arthroplasty. Patient continues with physical therapy but with limited weightbearing. She is able to make it to the hallway and back. Weakness. Limited range of motion in regards to flexion at the hip. Denies any chest pain/tightness, shortness of breath or calf pain. After physical therapy sessions yesterday, it was recommended that patient go to rehab facility for additional monitoring in regards to her functionality status post surgery to the hip. Pain Control: well controlled Exam/Review of Systems Vital Signs Vitals Vital Signs Date Time Temp Pulse Resp B/P Pulse Ox O2 Delivery O2 Flow Rate FiO2 07/16/17 03:30 98.3 80 18 106/77 95 07/15/17 07:59 Room Air 07/14/17 07:45 2.0 Intake and Output 07/15/17 07/15/17 07/16/17 14:59 22:59 06:59 Intake Total 1800 ml 950 ml Output Total 800 ml 900 ml Balance 1000 ml 50 ml Exam Free Text/Dictation -No complications with dressing intact. -Thigh soft -5/5 Quadriceps, Tibialis Anterior, EHL Gastrocnemius/Soleus and Peroneals -Normal Sensation -Palpable DP/PT, Capillary Refill <2 secs -No Distal Edema -Negative Gilebrt Sign/No calf pain -Toes Freely Movable Constitutional: alert, oriented, well developed Results Result Diagram: 07/16/17 0449 07/16/17 0449 SANDRA GUTHRIE PA-C Jul 16, 2017 07:52
[2017-07-16] MEDS: ASPIRIN (EC) 325 MG TAB PO SCH (08:30)
[2017-07-16] MEDS: FERROUS FUMARATE (SR) TAB PO SCH (08:30)
[2017-07-16] MEDS: DOCUSATE SODIUM 100 MG CAP PO SCH (08:30)
[2017-07-16] MEDS: CELECOXIB 100 MG CAP PO SCH (08:30)
[2017-07-16] MEDS: AMLODIPINE 5 MG TAB PO SCH (08:31)
[2017-07-16] MEDS: SOD CHLORIDE 0.9% 1,000 ML IV SCH (08:31)
[2017-07-16] MEDS ORDERED: POTASSIUM CHLORIDE 20 MEQ POWDER FOR ORAL SOLN PO ONE (09:30)
--- NOTE | 2017-07-16 10:53 | PN ---
Date/Time of Note Date/Time of Note DATE: 07/16/17 TIME: 10:51 Assessment/Plan Lines/Catheters IV Catheter Type (from Nrsg): Saline Lock Coombs in Place (from Nrsg): No Assessment/Plan Assessment/Plan s/p L VADIM POD 3 Patient will be discharged to Acute Rehab. She will follow up in my office within 2 weeks. She will be given prescription for pain meds/DVT proph. Subjective 24 Hr Interval Summary patient doing. Pain is controlled. Working with physical therapy. Exam/Review of Systems Vital Signs Vitals Vital Signs Date Time Temp Pulse Resp B/P Pulse Ox O2 Delivery O2 Flow Rate FiO2 07/16/17 07:50 98.7 64 18 110/65 97 07/15/17 07:59 Room Air 07/14/17 07:45 2.0 Intake and Output 07/15/17 07/15/17 07/16/17 15:00 23:00 07:00 Intake Total 1800 ml 950 ml Output Total 800 ml 900 ml Balance 1000 ml 50 ml Exam Free Text/Dictation Left Hip: Dressing C/D No drainage Negative Homans Calf Soft 5/5 Quad/GS/TA Results Result Diagram: 07/16/17 0449 07/16/17 0449 DANICA VELAZQUEZ MD Jul 16, 2017 10:53
[2017-07-16] MEDS ORDERED: GLUCAGON 1 MG INJ IM PRN (12:00)
[2017-07-16] MEDS ORDERED: GLUCOSE GEL 15 GRAM TUBE BUCCAL PRN (12:00)
[2017-07-16] MEDS ORDERED: DEXTROSE 50% 50 ML SYRINGE IV PRN ×2 (12:00)
[2017-07-16] MEDS ORDERED: GLUCOSE GEL 15 GRAM TUBE PO PRN ×2 (12:00)
--- NOTE | 2017-07-16 12:37 | PN ---
Date/Time of Note Date/Time of Note DATE: 07/16/17 TIME: 12:37 Assessment/Plan VTE Prophylaxis VTE Prophylaxis Intervention: ambulation, SCD's Lines/Catheters IV Catheter Type (from Nrs): Saline Lock Urinary Cath still in place: No Assessment/Plan Chief Complaint/Hosp Course Subjective 12.8 Patient has no acute complaints 12.9 sitting in chair, comfortable on phone Objective Physical exam General: Patient is laying in bed and answers questions appropriately Mentation: Patient is alert and oriented 4, Head: Normocephalic atraumatic Eyes: EOMI, pupils reactive to light Neck: Supple, nontender, midline Respiratory: Clear to auscultation bilaterally Cardiovascular: regular rate, no obvious murmurs Gastrointestinal: non-tender to palpation, bowel sounds heard. Neurological: Moves all extremities spontaneously Skin: No new skin lesions Assessment and plan Left hip osteoarthritis -Status post left total hip arthroplasty, -Orthopedic surgery recommendations appreciated Hypertension -Continue medications as needed Anemia -Likely secondary to surgery -Monitor for now, patient urged to get repeat hemoglobin testing and the outpatient setting dispo -ARU when accepted Problems: Exam/Review of Systems Vital Signs Vitals Vital Signs Date Time Temp Pulse Resp B/P Pulse Ox O2 Delivery O2 Flow Rate FiO2 07/16/17 07:50 98.7 64 18 110/65 97 07/15/17 07:59 Room Air 07/14/17 07:45 2.0 Intake and Output 07/15/17 07/15/17 07/16/17 15:00 23:00 07:00 Intake Total 1800 ml 950 ml Output Total 800 ml 900 ml Balance 1000 ml 50 ml Results Result Diagram: 07/16/17 0449 07/16/17 0449 Results 24 hrs Laboratory Tests Test 07/16/17 04:49 07/16/17 11:38 White Blood Count 9.6 Red Blood Count 3.29 L Hemoglobin 9.7 L Hematocrit 28.7 L Mean Corpuscular Volume 87.2 Mean Corpuscular Hemoglobin 29.5 Mean Corpuscular Hemoglobin Concent 33.8 Red Cell Distribution Width 13.0 Platelet Count 191 # Mean Platelet Volume 10.7 H Neutrophils % 62.3 Lymphocytes % 24.6 Monocytes % 11.3 H Eosinophils % 1.0 Basophils % 0.3 Nucleated Red Blood Cells % 0.0 Neutrophils # 6.0 Lymphocytes # 2.4 Monocytes # 1.1 H Eosinophils # 0.1 Basophils # 0.0 Nucleated Red Blood Cells # 0.0 Sodium Level 138 Potassium Level 3.2 L Chloride Level 99 Carbon Dioxide Level 32 H Anion Gap 10 Blood Urea Nitrogen 9 Creatinine 0.58 Glucose Level 142 Calcium Level 9.0 Bedside Glucose 193 Medications Medications Current Medications Sodium Chloride (NS) 1,000 ml @ 80 mls/hr [id number] IV Last administered on 07/14 03:55; Admin Dose 80 MLS/HR; Start 07/13/17 at 11:50 Oxycodone HCl (Roxicodone) 20 mg Q3H PRN PO PAIN LEVEL 8-10 Last administered on 07/14/17 12:45; Admin Dose 20 MG; Start 07/13/17 at 12:00 Oxycodone HCl (Roxicodone) 10 mg Q3H PRN PO PAIN LEVEL 4-7 Last administered on 07/15/17 12:09; Admin Dose 10 MG; Start 07/13/17 at 12:00 Oxycodone HCl (Roxicodone) 5 mg Q3H PRN PO PAIN LEVEL 1-3; Start 07/13/17 at 12 :00 Zolpidem Tartrate (Ambien) 5 mg HS PRN PO INSOMNIA; Start 07/13/17 at 12:00 Aspirin (Ecotrin) 325 mg BID PO Last administered on 07/16/17 08:30; Admin Dose 325 MG; Start 07/14/17 at 09:00 Pantoprazole (Protonix Tab) 40 mg DAILY@06 PO Last administered on 07/16/17 05 :20; Admin Dose 40 MG; Start 07/14/17 at 06:00 Docusate Sodium/ Ferrous Fumarate (Diane-Sequels) 1 tab BID PO Last administered on 07/16/17 08:30; Admin Dose 1 TAB; Start 07/14/17 at 09:00 Docusate Sodium (Colace) 200 mg BID PO Last administered on 07/16/17 08:30; Admin Dose 200 MG; Start 07/14/17 at 09:00; Stop 07/16/17 at 21:01 Simethicone (Mylicon) 80 mg TID PRN PO DISTENSION/GAS/BLOATING; Start 07/13/17 at 12:00 Senna/Docusate Sodium (Senokot-S) 2 tab BID PRN PO CONSTIPATION; Start at 12:00 Magnesium Hydroxide (Milk Of Mag) 30 ml HS PRN PO CONSTIPATION; Start 07/13/17 at 12:00 Bisacodyl (Dulcolax Supp) 10 mg DAILY PRN ID CONSTIPATION; Start 07/13/17 at 12 :00 Sodium Biphosphate/ Sodium Phosphate (Fleet Enema) 133 ml DAILY PRN ID CONSTIPATION; Start 07/13/17 at 12:00 Diphenhydramine HCl (Benadryl) 25 mg Q4H PRN IM ITCHING OR RASH; Start at 12:00 Ketorolac Tromethamine (Toradol) 15 mg Q4 PRN IV PAIN; Start 07/13/17 at 12:00 ; Stop 07/17/17 at 11:59 Naloxone HCl (Narcan) 0.2 mg Q2M PRN IV DECREASED REPIRATORY RATE; Start at 12:00 Amlodipine Besylate (Norvasc) 5 mg DAILY PO Last administered on 07/14/17 08: 47; Admin Dose 5 MG; Start 07/14/17 at 09:00 Celecoxib (Celebrex) 100 mg BID PO Last administered on 07/16/17 08:30; Admin Dose 100 MG; Start 07/15/17 at 09:00 Diagnostic Test (Pha) (Accu-Chek) 1 ea 02 XX ; Start 07/17/17 at 02:00 Miscellaneous Information 1 ea NOTE XX ; Start 07/16/17 at 12:00 Glucose (Glutose) 15 gm Q15M PRN PO DECREASED GLUCOSE; Start 07/16/17 at 12:00 Glucose (Glutose) 22.5 gm Q15M PRN PO DECREASED GLUCOSE; Start 07/16/17 at 12: 00 Dextrose (D50w Syringe) 25 ml Q15M PRN IV DECREASED GLUCOSE; Start 07/16/17 at 12:00 Dextrose (D50w Syringe) 50 ml Q15M PRN IV DECREASED GLUCOSE; Start 07/16/17 at 12:00 Glucagon (Glucagen) 1 mg Q15M PRN IM DECREASED GLUCOSE; Start 07/16/17 at 12:00 Glucose (Glutose) 15 gm Q15M PRN BUCCAL DECREASED GLUCOSE; Start 07/16/17 at 12 :00 BONIFACIO TURNER Jul 16, 2017 12:37
[2017-07-16] MEDS: INSULIN ASPART [NOVOLOG] 3 ML PEN SC SCH ×2 (13:10→17:29)
[2017-07-16 14:04] VITALS: BP 103/58; RESP 17
[2017-07-16] MEDS ORDERED: INSULIN ASPART [NOVOLOG] 3 ML PEN SC SCH (17:55)
[2017-07-17] MEDS ORDERED: ACCU-CHEK XX SCH (02:00)
--- NOTE | 2017-07-17 07:41 | DS ---
Date/Time of Note Date/Time of Note DATE: 07/17/17 TIME: 07:39 Discharge Summary Admission/Discharge Info Admit Date/Time Jul 13, 2017 at 06:01 Discharge Date/Time Jul 16, 2017 at 19:10 Discharge Diagnosis Status post left total hip arthroplasty via anterior route. Patient Condition: Stable Hospital Course On the day of admission, the patient underwent left total hip arthroplasty via anterior route Intraoperative complications: None Postoperative complications: None The patient was given prophylactic antibiotics and anticoagulants. On the day of surgery and first postoperative day patient was started on gait training and was taught usual restrictions following hip replacement anteriorly On postoperative day 1 dressing was clean dry and intact. No complications were observed. On the day of discharge, the wound was clean and healing well; there was no sign of infection. Wound care instructions were discussed with the patient. Discharge Temperature: 98.2 Discharge White Blood Cell Count: 9.6 Discharge Hemoglobin: 9.7 The patient was discharged [facility] facility. Arrangements were made for visiting nurses and home health/physical therapy. The patient will be seen in office at scheduled postoperative evaluation date given on their preoperative exam. Should patient complain of any problems prior to scheduled postoperative evaluation date, they may call into outpatient clinic to determine if they need to be scheduled at sooner appointment to be seen immediately if needed. Discharge medications: As per medication reconciliation form Diet: Same as preadmission diet. This is Sandra Oliveros PA-C dictating discharge summary for Dr. Carlos Delgado. Home Meds Active Scripts [facility]-3 Fatty Acids/Fish Oil (Fish Oil 1,000 mg Capsule) 1 Each Capsule, 1 EACH PO DAILY for 30 Days, #30 CAP Prov:SCHUYLER RODRIGUEZ 07/14/17 Azithromycin* (Azithromycin*) 500 Mg Tablet, 500 MG PO DAILY for 5 Days, TAB Prov:SKYE CAPELLAN 11/08/14 Reported Medications Triamterene/Hctz* (Maxzide (37.5-25)*) 1 Each Tablet, 1 EACH PO DAILY, #30 TAB 07/13/17 Amlodipine Besylate* (Amlodipine Besylate*) 5 Mg Tablet, 5 MG PO DAILY, #30 07/13/17 Follow-up Plan Follow-up at postoperative appointment provided to you at your preoperative visit. Primary Care Provider Not On Staff Doctor Pending Labs Laboratory Tests Test 07/16/17 11:38 07/16/17 12:37 07/16/17 17:28 Bedside Glucose 193mg/dL (70-220) 150mg/dL (70-220) 139mg/dL (70-220) SANDRA GUTHRIE PA-C Jul 17, 2017 07:41
== END 2017-07-16 19:10 | disposition home health service (06) | DRG 470 ==
LOC: REC 06:01 → MS1 13:13
PROVIDERS: ADMIT Orthopaedic Surgery Adult Reconstructive Orthopaedic Surgery; ATTEND Orthopaedic Surgery Adult Reconstructive Orthopaedic Surgery
PROC: 0SRB04A Replacement of Left Hip Joint with Ceramic on Polyethylene Synthetic Substitute, Uncemented, Open Approach (ICD-10-PCS; principal; 2017-07-13 07:30)
DX: M16.12 Unilateral primary osteoarthritis, left hip (principal); I10 Essential (primary) hypertension; E11.9 Type 2 diabetes mellitus without complications
CPT/HCPCS: 73500; 73530; 80048; 80061; 81001; 82962; 83036; 84436; 84479; 85025; 86850; 86900; 86901; 87086; 88304; 88311; 97110; 97116; 97163; 97166; 97530; 97535; C1776; J0171; J0690; J0697; J0735; J1170; J1815; J1885; J2250; J2274; J2370; J2405; J2795; J3010; J7030